=== PATIENT | female | born 1975 | race Two or more races ===

== ENCOUNTER 2017-09-22 08:13 | Outpatient (CLI) | payer OTHER | END 2017-09-22 08:40 | disposition home or self-care (01) | LOC: RAD 08:13 → MRI 08:15 → RAD 08:40 | DX: Z12.31 Encounter for screening mammogram for malignant neoplasm of breast (principal); N60.11 Diffuse cystic mastopathy of right breast; N60.12 Diffuse cystic mastopathy of left breast; R19.00 Intra-abdominal and pelvic swelling, mass and lump, unspecified site; R10.2 Pelvic and perineal pain; D25.1 Intramural leiomyoma of uterus | CPT/HCPCS: 72196; 74182 ==

== ENCOUNTER 2017-10-16 14:45 | Inpatient (IN) | payer OTHER ==
[~2017-10-16] VITALS: Ht 160 cm; Wt 88.5 kg
[2017-10-22] MEDS ORDERED: CODE1TAB37 PO (11:14)
[2017-10-22] MEDS ORDERED: NAPR500T14 PO (11:14)
== END 2017-10-22 11:30 | disposition home or self-care (01) | DRG 743 ==
LOC: O/R 10-19 09:23 → SURG 10-19 10:45
PROVIDERS: Obstetrics & Gynecology
PROC: 0UT20ZZ Resection of Bilateral Ovaries, Open Approach (ICD-10-PCS; 2017-10-19)
PROC: 0TJB8ZZ Inspection of Bladder, Via Natural or Artificial Opening Endoscopic (ICD-10-PCS; 2017-10-19)
PROC: 0UT90ZZ Resection of Uterus, Open Approach (ICD-10-PCS; principal; 2017-10-19 10:45)
PROC: 0UT70ZZ Resection of Bilateral Fallopian Tubes, Open Approach (ICD-10-PCS; 2017-10-19 10:45)
DX: D25.1 Intramural leiomyoma of uterus (principal); D25.0 Submucous leiomyoma of uterus; D25.2 Subserosal leiomyoma of uterus